=== PATIENT | female | born 1955 | race Caucasian/White ===

== ENCOUNTER 2020-05-23 15:49 | Inpatient (IN) | payer MEDICARE, OTHER ==
[~2020-05-23] VITALS: Ht 152.4 cm; Wt 68.0 kg
[2020-05-23 16:42] LABS: Basophils # (auto) 0 10 ^3/uL (0-0.2); Basophils % (auto) 0.4 % (0.0-2.0); Eosinophils # (auto) 0.2 10 ^3/uL (0-0.8); Eosinophils % (auto) 2.2 % (0.0-7.0); Hematocrit 42.1 % (36.0-46.0); Hemoglobin 13.7 g/dL (12.2-16.2); Lymphocytes % (auto) 22.5 % (10.0-50.0); Mean Corpuscular Hemoglobin 29.5 pg (28.0-32.0); Mean Corpuscular Hgb Conc. 32.4 g/dL (32.0-36.0); Mean Corpuscular Volume 91.1 fL (80.0-100.0); Monocytes # (auto) 0.6 10 ^3/uL (0-1.3); Monocytes % (auto) 6.6 % (0.0-12.0); Neutrophils # (auto) 6.2 10 ^3/uL (1.6-8.6); Neutrophils % (auto) 68.3 % (37.0-80.0); Nucleated Red Blood Cells % 0.1 %; Platelet Count (auto) 188 10^3/uL (140-450); Red Blood Cells 4.62 10^6/uL (4.0-5.20); Red Cell Distribution Width 13.6 % (11.8-14.3); White Blood Cell 9.1 10^3/uL (4.4-10.8)
[2020-05-23 17:02] LABS: Albumin 3.7 g/dL (3.4-5.0); BUN/Creatinine Ratio 16.5; Calcium 8.6 mg/dL (8.5-10.1); Potassium 3.6 mmol/L (3.5-5.1)
[2020-05-23 17:03] LABS: Urine Bacteria NONE SEEN /hpf (None Seen); Urine Blood 3+ /uL (Negative); Urine Mucus FEW (None Seen); Urine Specific Gravity 1.022 (1.001-1.035); Urine WBC 16 /hpf (0 - 5)
[2020-05-23 17:05] LABS: Bilirubin, Total 1.1 mg/dL (0.2-1.0)
[2020-05-23] MEDS ORDERED: METOCLOPRAMIDE HCL 5MG/ml INJ 2ml VIAL IV ONE (17:15)
[2020-05-23] MEDS ORDERED: KETOROLAC TROMETH 30 MG/ML 1ML VIAL IV ONE (17:15)
[2020-05-23] MEDS ORDERED: SODIUM CHLORIDE 0.9% 1,000 ML IV ONE (17:15)
[2020-05-23] MEDS: SODIUM CHLORIDE 0.9% 1,000 ML IVB ONE ×2 (17:32→17:33)
[2020-05-23] MEDS ORDERED: cefTRIAXone 1GM/50ML D5W 50 ML IV ONE (17:45)
[2020-05-23] MEDS ORDERED: TAMSULOSIN HYDROCHLORIDE 0.4 MG CAP PO ONE (18:15)
[2020-05-23] MEDS ORDERED: traMADol HCL 50 MG TAB PO PRN (19:30)
[2020-05-23] MEDS ORDERED: ALBUTEROL SULF 2.5 MG/0.5ML(0.5%) NEB SOLN NEB PRN (19:30)
[2020-05-23] MEDS ORDERED: TEMAZEPAM 15 MG CAP PO PRN (19:30)
[2020-05-23] MEDS ORDERED: PROMETHAZINE HCL 25 MG/ML 1ML IV PRN (19:30)
[2020-05-23] MEDS ORDERED: ACETAMINOPHEN 500 MG TAB PO PRN (19:30)
--- NOTE | 2020-05-23 19:52 | NUR ---
MS admit from ER Patient admitted to Med Surg. Patient oriented to primary RN, unit, room, bed, and unit policies regarding patient care and visiting hours. Patient weighed by bedscale and encouraged to call if they need something. All questions and concerns addressed, patient verbalized understanding. Safety precautions maintained bed is in lowest position and locked, bed rails 2x. Call light and bedside table are within reach.
[2020-05-23] MEDS: SODIUM CHLORIDE 0.9% 1,000 ML IV SCH (20:00)
[2020-05-23 20:15] VITALS: BP 137/71
[2020-05-23 20:20] VITALS: BP 134/74
[2020-05-23] MEDS: FAMOTIDINE 20 MG TAB PO SCH (21:29)
[2020-05-23 22:00] VITALS: BP 134/74
[2020-05-24] MEDS ORDERED: VALA500T33 PO (01:33)
[2020-05-24] MEDS ORDERED: CYCL0.05 EACHEYE (01:33)
[2020-05-24] MEDS ORDERED: OMEG120015 PO (01:33)
[2020-05-24] MEDS ORDERED: CHOL500014 PO (01:33)
[2020-05-24] MEDS ORDERED: MONT10TA34 PO (01:33)
[2020-05-24] MEDS ORDERED: PRAV20TA3 PO (01:33)
[2020-05-24] MEDS ORDERED: LORA-622 PO (01:33)
[2020-05-24] MEDS ORDERED: CALC667C PO (01:33)
[2020-05-24] MEDS: MORPHINE SULF INJ 2 MG/ML SYRINGE 1ML IV PRN ×4 (03:13→21:21)
[2020-05-24 05:00] VITALS: BP 109/50
[2020-05-24] MEDS: SODIUM CHLORIDE 0.9% 1,000 ML IV SCH ×3 (05:21→21:22)
--- NOTE | 2020-05-24 08:02 | NUR ---
Opening Shift Note Assumed care of patient, awake and alert. No S/S of distress/SOB or pain. Instructed on POC and to call for assist PRN, will continue to monitor for changes Q1hr and PRN.
[2020-05-24 09:00] VITALS: BP 121/70
[2020-05-24] MEDS: cefTRIAXone 1GM/50ML D5W 50 ML IV SCH (09:30)
[2020-05-24] MEDS: FAMOTIDINE 20 MG TAB PO SCH ×2 (09:30→21:22)
--- NOTE | 2020-05-24 09:31 | NUR ---
RT NOTE: PRN BREATHING TX. NOT INDICATED AT THIS TIME. NO S/S OF RESPIRATORY DISTRESS NOTED. PT. APPEARS TO BE IN PAIN, RN BEDSIDE ASSESSING PT. AND GIVING MEDS. PT. HR 87, RR 20, POX 99% R/A. PT. AWARE TO NOTIFY RN IF BREATHING TX. IS NEEDED.
[2020-05-24 13:00] VITALS: BP 125/74
--- NOTE | 2020-05-24 14:30 | NUR ---
IV removal Patient complained to pain and swelling to left hand. IV to left AC removed with clean sterile technique, catheter fully intact. Pressure dressing applied to site. Patient tolerated well. IV insertion IV access obtained, via clean sterile technique by inserting 22 gauge catheter at right forearm after 2 attempt(s). IV secured properly. No trauma to site. Patient tolerated well.
[2020-05-24 17:00] VITALS: BP 120/67
--- NOTE | 2020-05-24 19:30 | NUR ---
Opening Shift Note Assumed care of patient, awake and alert. No S/S of distress/SOB or pain. Instructed on POC and to call for assist PRN. Patient verbalized understanding. Bed is in lowest/locked position with side rails up X's 2 and call light is within reach of patient. Will continue care.
[2020-05-24 22:31] VITALS: BP 140/73
[2020-05-25] MEDS: SODIUM CHLORIDE 0.9% 1,000 ML IV SCH ×2 (05:05→09:06)
[2020-05-25 05:16] VITALS: BP 128/67
[2020-05-25 06:13] LABS: Basophils # (auto) 0 10 ^3/uL (0-0.2); Basophils % (auto) 0.5 % (0.0-2.0); Eosinophils # (auto) 0.3 10 ^3/uL (0-0.8); Hematocrit 36.1 % (36.0-46.0); Lymphocytes # (auto) 2.9 10 ^3/uL (0.4-5.4); Lymphocytes % (auto) 43.1 % (10.0-50.0); Mean Corpuscular Hgb Conc. 33.2 g/dL (32.0-36.0); Mean Corpuscular Volume 90.2 fL (80.0-100.0); Monocytes # (auto) 0.5 10 ^3/uL (0-1.3); Monocytes % (auto) 7.9 % (0.0-12.0); Neutrophils % (auto) 44.5 % (37.0-80.0); Nucleated Red Blood Cells % 0.1 %; Platelet Count (auto) 155 10^3/uL (140-450); Red Cell Distribution Width 13.8 % (11.8-14.3); White Blood Cell 6.8 10^3/uL (4.4-10.8)
[2020-05-25 06:33] LABS: Calcium 8.5 mg/dL (8.5-10.1); Potassium 3.7 mmol/L (3.5-5.1)
[2020-05-25 06:36] LABS: BUN/Creatinine Ratio 15.6
--- NOTE | 2020-05-25 07:50 | NUR ---
Opening Shift Note Assumed care of patient, awake and alert ambulating to the bathroom. No S/S of distress/SOB or pain. Instructed on POC and to call for assist PRN, will continue to monitor for changes Q1hr and PRN.
[2020-05-25 09:00] VITALS: BP 138/74
[2020-05-25] MEDS: FAMOTIDINE 20 MG TAB PO SCH (09:05)
[2020-05-25] MEDS: cefTRIAXone 1GM/50ML D5W 50 ML IV SCH (09:05)
[2020-05-25] MEDS ORDERED: MANNITOL FTV 25% 12.5 GM/50 ML 50 ML IV ONE (10:15)
[2020-05-25] MEDS ORDERED: SODIUM CHLORIDE 0.9% 1,000 ML IV ONE (10:15)
--- NOTE | 2020-05-25 10:40 | NUR ---
Urology Spoke with Debbie with urology group. Verbal order to hold mannitol, KUB U/S will be done and if normal patient can be discharged home.
[2020-05-25 13:00] VITALS: BP 140/81
[2020-05-25 13:55] VITALS: BP 140/81
--- NOTE | 2020-05-25 15:27 | NUR ---
ss consult Patient is requesting advanced directive. Patient has been provided with advanced directive. Addendum: 05/25/20 at 1528 by Mayra MCCARTNEY Amended: Links added.
--- NOTE | 2020-05-25 16:40 | NUR ---
Discharge instructions given as ordered. Encourage to follow up with PMD as instructed. All questions and concerns addressed. Patient verbalized understanding. Medication reconciliation form completed and copy given to patient. IV removed with catheter intact and pressure dressing applied. Patient ambulated to vehicle with all personal belongings, accompanied by staff member. No distress noted at time of departure.
== END 2020-05-25 16:40 | disposition home or self-care (01) | DRG 690 ==
LOC: ER 15:49 → OVERFLOW 15:50 → WEST WING 19:54
PROVIDERS: ADMIT Internal Medicine; ATTEND Internal Medicine
DX: N13.6 Pyonephrosis (principal); E66.9 Obesity, unspecified; J45.909 Unspecified asthma, uncomplicated; K80.20 Calculus of gallbladder without cholecystitis without obstruction; M43.16 Spondylolisthesis, lumbar region; N23 Unspecified renal colic; R73.9 Hyperglycemia, unspecified; Z87.440 Personal history of urinary (tract) infections; E78.5 Hyperlipidemia, unspecified; Z82.49 Family history of ischemic heart disease and other diseases of the circulatory system; Z88.8 Allergy status to other drugs, medicaments and biological substances; Z68.27 Body mass index [BMI] 27.0-27.9, adult
CPT/HCPCS: 36415; 74018; 74176; 80048; 80053; 81001; 84443; 85025; 87086; G0378; J0696; J1885